=== PATIENT | male | born 1970 | race Two or more races ===

== ENCOUNTER 2016-11-22 15:56 | Emergency (ER) | payer OTHER ==
[2016-11-22] MEDS ORDERED: ONDANSETRON 4 MG/2 ML VIAL IVP ONE (16:08)
[2016-11-22] MEDS ORDERED: NS 1,000 ML IV ONE (16:08)
[2016-11-22 16:16] VITALS: RESP 16
--- NOTE | 2016-11-22 16:23 | CPEKG ---
Heart Rate: 92 RR Interval: 652 P-R Interval: 168 QRSD Interval: 74 QT Interval: 316 QTC Interval: 391 P [place]: 16 QRS [place]: -8 T Wave [place]: 14 EKG Severity - ABNORMAL ECG - EKG Impression: SINUS RHYTHM EKG Impression: ABNRM R PROG, CONSIDER ASMI OR LEAD PLACEMENT Electronically Signed By: Portillo Treviño 22-Nov-2016 19:31:14
[2016-11-22] MEDS ORDERED: HYOSCYAMINE SULFATE 0.125 MG TAB PO ONE (16:31)
[2016-11-22] MEDS ORDERED: NITROGLYCERIN 0.4 MG BTL SL ONE (16:38)
[2016-11-22 16:43] LABS: % IMMATURE GRANULYOCYTES 0.2 % (0.0-1.1); ABSOLUTE IMMATURE GRANULOCYTES 0.02 10^3/uL (0.00-0.10); ADD DIFF? NO; ADD MORPH? NO; ADD SCAN? NO; ATYPICAL LYMPHOCYTE FLAG 10 (0-99); FRAGMENT RBC FLAG 0 (0-99); LEFT SHIFT FLG 50 (0-99); LIPEMIA HEMOLYSIS FLAG 90 (0-99); MEAN CELL HEMOGLOBIN 31.3 pg (27.9-34.1); MEAN CELL HEMOGLOBIN CONCENTR. 34.8 g/dL (32.4-36.7); MEAN PLATELET VOLUME 11.4 fL (8.7-11.7); PLATELET CLUMPS FLAG 0 (0-99); PLATELET COUNT 178 10^3/uL (150-400); RED BLOOD CELL COUNT 5.11 10^6/uL (4.40-6.38); RED CELL DISTRIBUTION WIDTH 12.4 % (11.5-15.2)
[2016-11-22 16:45] VITALS: TEMP 97.9
[2016-11-22 16:57] LABS: ALANINE AMINOTRANSFERASE 53 IU/L (21-72); ALBUMIN 3.6 g/dL (3.5-5.0); ALKALINE PHOSPHATASE 70 IU/L (38-126); ANION GAP 11 mEq/L (8-16); ASPARTATE AMINOTRANSFERASE 23 IU/L (17-59); BILIRUBIN,TOTAL 0.5 mg/dL (0.1-1.4); CALCIUM 8.4 mg/dL (8.5-10.4); CARBON DIOXIDE 22 mEq/l (22-31); CHLORIDE 103 mEq/L (97-110); CREATININE 0.6 mg/dL (0.7-1.3); GLOMERULAR FILTRATION RATE > 60; GLUCOSE 140 mg/dL (70-100); POTASSIUM 3.6 mEq/L (3.5-5.2); SODIUM 136 mEq/L (134-144); TOTAL PROTEIN 6.6 g/dL (6.3-8.2)
[2016-11-22 17:09] LABS: TROPONIN I < 0.012 ng/mL (0-0.034)
[2016-11-22] MEDS ORDERED: ASPIRIN 81 MG CHEWABLE TAB PO ONE (17:11)
[2016-11-22 17:21] LABS: INR 1.08 (0.83-1.16); PROTIME(PATIENT) 13.7 SEC (12.0-15.0)
[2016-11-22 17:22] LABS: APTT 30.3 SEC (23.0-38.0)
[2016-11-22] MEDS ORDERED: IOPAMIDOL (ISOVUE 370) 100 ML BTL IV ONE (17:30)
[2016-11-22] MEDS ORDERED: MAG HYDROX/AL HYDROX/SIMETH 30 ML UDCUP PO ONE (19:10)
--- NOTE | 2016-11-22 19:12 | EDPHY ---
H & P Stated Complaint: fever, vomiting, diarrhea, SOB, CP since sunday Time Seen by Provider: 11/22/16 16:07 HPI/ROS: While this patient is chief complaint is chest pain, he also complains of vomiting, diarrhea and other somatic complaints. His symptoms started Sunday, 2 days prior to arrival with onset of watery diarrhea-10 episodes or so a day over the past 2 days. Vomiting started Sunday afternoon and has had a few episodes daily since then, unable to tolerate p. o. food or fluids over the past 24 hours. Today at 2:30 p.m. he had bright red blood-small amount mixed in his emesis that concerned him and prompted his arrival along with onset of chest pains that he describes as substernal radiating to his back since this morning. He states the pain has been constant since onset, moderate intensity worse with a deep breath. The symptoms also worsens but when he bends forward. He notes associated nausea also since this morning. He states the dyspnea is mild. ROS: Subjective fevers Sunday in yesterday, none today. No other constitutional symptoms Musculoskeletal: He did describes leg aches and back ache. The left leg is more painful than the right as moderate intensity the posterior calf. HEENT: No recent URI symptoms. He does complain of a generalized headache feels like a pressure of [id number] intensity improved at 4:00 a.m. with ibuprofen though he thinks that he vomited the ibuprofen up later. Pulmonary: As per HPI. He also reports a occasional dry cough today. Cardiovascular: No heart palpitations. Other symptoms as per HPI GI: He describes generalized crampy abdominal pain that started after the onset of vomiting and diarrhea it is moderate intensity. : No urinary symptoms or testicle pain. Integumentary: No skin rash or other complaints Complete review of symptoms is otherwise negative Source: Patient, Family Exam Limitations: No limitations, Language barrier (His daughter translate Citizen Of [place].) - Personal History Current Tetanus Diphtheria and Acellular Pertussis (TDAP): Unsure - Medical/Surgical History Hx Asthma: No Hx Chronic Respiratory Disease: No Hx Diabetes: Yes Hx Cardiac Disease: Yes Hx Renal Disease: No Hx Cirrhosis: No Hx Alcoholism: No Hx HIV/AIDS: No Hx Splenectomy or Spleen Trauma: No Other PMH: diabetes, Leah Cholesterol - Family History Significant Family History: Other (His mother had DVTs) - Social History Smoking Status: Current every day smoker Alcohol Use: Occasionally (Patient drinks once or twice a week but drank 7 beers on Sunday) Drug Use: None - Physical Exam Exam: General Appearance: Alert, no distress. Eyes: Pupils equal and round no pallor or injection. ENT, Mouth: Mucous membranes moist. Respiratory: There are no retractions, lungs are clear to auscultation. Cardiovascular: Regular rate and rhythm. Gastrointestinal: Mildly hyperactive bowel sounds, soft, diffuse mild tenderness with no guarding or rebound. No organomegaly. Back: Tenderness that seems muscular in the mid right back. No CVA tenderness. No midline spine tenderness. Neurological: GCS 15 with no focal deficits. Skin: Warm and dry, no rashes. Musculoskeletal: Neck is supple nontender. Extremities are symmetrical, full range of motion. The patient has moderate left calf tenderness without swelling. No significant right calf tenderness. Psychiatric: Mood and affect normal DIFFERENTIAL DIAGNOSIS: After history and physical exam differential diagnosis was considered for viral gastroenteritis, Penelope-Lombardo tear, GERD, esophageal spasm, mi, PE, dissecting aortic aneurysm, DVT, pneumonia, alcohol gastritis, hepatitis, cholecystitis Constitutional: Initial Vital Signs Temperature (C) 36.6 C 11/22/16 16:13 Heart Rate 97 11/22/16 16:13 Respiratory Rate 16 11/22/16 16:13 Blood Pressure 120/76 11/22/16 16:13 O2 Sat (%) 94 11/22/16 16:13 O2 Delivery Mode Room Air Allergies/Adverse Reactions: No Known Allergies Allergy (Unverified 11/22/16 16:15) Home Medications: Medication Instructions Recorded ASPIRIN 11/22/16 Chantix 11/22/16 GLIPIZIDE 11/22/16 Lisinopril 11/22/16 Metformin 1000 mg 11/22/16 Medical Decision Making - Diagnostics EKG Interpretation: 12 lead EKG performed at 4:21 p.m. indication chest pain rule out HI Sinus rhythm 92 Intervals: Normal throughout [place]: Normal throughout ST segments: Normal throughout Overall assessment sinus rhythm with poor anterior R-wave progression otherwise normal. No prior for comparison Imaging Results: Imaging Impressions Chest/Thorax CTA 11/22/16 17:11 Impression: 1. No evidence of pulmonary embolic disease. 2. The heart is borderline enlarged. 3. See above report for additional findings. Results called and discussed with Dr. Portillo Price on November 22, 2016 at 1808 hours. Extremity Venous Study 11/22/16 18:06 Impression: No evidence of deep vein thrombosis in the left lower extremity. Results called and discussed with PORTILLO PRICE M.D. on 11/22/2016 at 19:09 ED Course/Re-evaluation: IV Zofran with resolution of nausea vomiting 1 L normal saline bolus After review of elevated D-dimer and resolution of nausea patient treated with 324 of aspirin p.o. for potential DVT or PE and troponin pending Patient treated with Maalox. He had marked improvement in all of his symptoms with treatment. I reviewed his labs. Other than the elevated D-dimer no other significant lab abnormalities. I explained his CT chest-negative for PE, pneumonia or other abnormalities I also explained the negative Doppler ultrasound that ruled out DVT left lower extremity Discussion: This [id number] diabetic smoker with family history of DVT who presented with chest pain, leg pain and tenderness, vomiting and diarrhea had a broad differential diagnosis list of possibilities initially. After workup, I find no evidence of pulmonary embolism, pneumonia, pneumothorax or other significant pulmonary abnormalities. Similarly, no significant cardiac abnormalities are noted. He has a benign EKG and negative troponin and his symptoms in his chest resolved without significant intervention. I suspect that he had esophageal symptoms attributable to significant vomiting with soft diet is. I think that the small amount of bright red blood is consistent with Penelope-Lombardo tear in this patient with serial vomiting explain this to him. On repeat examination shortly prior to discharge the patient appears well, without any significant lingering symptoms. I think the at a viral gastroenteritis causing his vomiting and diarrhea. Patient will go home on Zofran and take [id number] Maalox, omeprazole and Imodium for symptoms. He will follow up with primary care physician for any ongoing symptoms he understands the need to return emergency department if he has any significant recurrence of his symptoms despite the treatment plan. Answered all the patient's questions and is comfortable with discharge home - Data Points Laboratory Results: Laboratory Results 11/22/16 16:35 11/22/16 16:35 11/22/16 11/22/16 11/22/16 16:35 16:35 16:35 WBC RBC Hgb Hct MCV MCH MCHC RDW Plt Count MPV Neut % (Auto) Lymph % (Auto) [place] % (Auto) Eos % (Auto) Baso % (Auto) Nucleat RBC Rel Count Absolute Neuts (auto) Absolute Lymphs (auto) Absolute Monos (auto) Absolute Eos (auto) Absolute Basos (auto) Absolute Nucleated RBC Immature Gran % Immature Gran # PT 13.7 SEC SEC (12.0-15.0) INR 1.08 (0.83-1.16) APTT 30.3 SEC SEC (23.0-38.0) D-Dimer 0.93 ug/mLFEU H ug/mLFEU (0.00-0.50) Sodium 136 mEq/L mEq/L (134-144) Potassium 3.6 mEq/L mEq/L (3.5-5.2) Chloride 103 mEq/L mEq/L (97-110) Carbon Dioxide 22 mEq/l mEq/l (22-31) Anion Gap 11 mEq/L mEq/L (8-16) BUN 15 mg/dL mg/dL (7-23) Creatinine 0.6 mg/dL L mg/dL (0.7-1.3) Estimated GFR > 60 Glucose 140 mg/dL H mg/dL (70-100) Calcium 8.4 mg/dL L mg/dL (8.5-10.4) Total Bilirubin 0.5 mg/dL mg/dL (0.1-1.4) AST 23 IU/L IU/L (17-59) ALT 53 IU/L IU/L (21-72) Alkaline Phosphatase 70 IU/L IU/L (38-126) Troponin I < 0.012 ng/mL ng/mL (0-0.034) Total Protein 6.6 g/dL g/dL (6.3-8.2) Albumin 3.6 g/dL g/dL (3.5-5.0) Lipase 54.0 IU/L IU/L (23-300) 11/22/16 16:35 WBC 8.42 10^3/uL 10^3/uL (3.80-9.50) RBC 5.11 10^6/uL 10^6/uL (4.40-6.38) Hgb 16.0 g/dL g/dL (13.7-17.5) Hct 46.0 % % (40.0-51.0) MCV 90.0 fL fL (81.5-99.8) MCH 31.3 pg pg (27.9-34.1) MCHC 34.8 g/dL g/dL (32.4-36.7) RDW 12.4 % % (11.5-15.2) Plt Count 178 10^3/uL 10^3/uL (150-400) MPV 11.4 fL fL (8.7-11.7) Neut % (Auto) 76.8 % H % (39.3-74.2) Lymph % (Auto) 11.4 % L % (15.0-45.0) [place] % (Auto) 9.7 % % (4.5-13.0) Eos % (Auto) 1.7 % % (0.6-7.6) Baso % (Auto) 0.2 % L % (0.3-1.7) Nucleat RBC Rel Count 0.0 % % (0.0-0.2) Absolute Neuts (auto) 6.46 10^3/uL 10^3/uL (1.70-6.50) Absolute Lymphs (auto) 0.96 10^3/uL L 10^3/uL (1.00-3.00) Absolute Monos (auto) 0.82 10^3/uL H 10^3/uL (0.30-0.80) Absolute Eos (auto) 0.14 10^3/uL 10^3/uL (0.03-0.40) Absolute Basos (auto) 0.02 10^3/uL 10^3/uL (0.02-0.10) Absolute Nucleated RBC 0.00 10^3/uL 10^3/uL (0-0.01) Immature Gran % 0.2 % % (0.0-1.1) Immature Gran # 0.02 10^3/uL 10^3/uL (0.00-0.10) PT INR APTT D-Dimer Sodium Potassium Chloride Carbon Dioxide Anion Gap BUN Creatinine Estimated GFR Glucose Calcium Total Bilirubin AST ALT Alkaline Phosphatase Troponin I Total Protein Albumin Lipase Medications Given: Discontinued Medications Al Hydroxide/Mg Hydroxide (Maalox Susp) 30 ml PO EDNOW ONE Stop: 11/22/16 19:11 Last Admin: 11/22/16 19:19 Dose: 30 ml Aspirin (Aspirin) 324 mg PO EDNOW ONE Stop: 11/22/16 17:12 Last Admin: 11/22/16 17:27 Dose: 324 mg Hyoscyamine Sulfate (Levsin, Hyomax-Sl) 0.125 mg PO EDNOW ONE Stop: 11/22/16 16:32 Last Admin: 11/22/16 16:40 Dose: 0.125 mg Sodium Chloride (Ns) 1,000 mls @ 0 mls/hr IV EDNOW ONE; Wide Open PRN Reason: Protocol Stop: 11/22/16 16:09 Last Admin: 11/22/16 16:40 Dose: 1,000 mls Ondansetron HCl (Zofran) 4 mg IVP EDNOW ONE Stop: 11/22/16 16:09 Last Admin: 11/22/16 16:41 Dose: 4 mg Departure - Departure Disposition: Home, Routine, Self-Care Clinical Impression: Gastroenteritis, Penelope-Lombardo tear, Dehydration Chest pain Qualifiers: Chest pain type: chest pain on breathing Qualified Code(s): R07.1 - Chest pain on breathing Condition: Good Instructions: Chest Pain (ED), Gastroenteritis (ED), Penelope-Lombardo Syndrome (ED ) Additional Instructions: Diagnosis: Chest pain 2. Gastroenteritis 3. Dehydration 4. 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 Your vomiting diarrhea are likely caused by a virus. Plan: Zofran for nausea or vomiting if needed Light diet to feel improved Imodium for diarrhea if needed Maalox for reflux her chest discomfort as needed. Follow-up with primary care physician for any ongoing symptoms last beyond the next few days. Avoid alcohol for next 7-10 days Prilosec-40 mg a day for the next 10 days Return for any significant worsening despite treatment plan. Referrals: MICHELLE SMITH,. [Primary Care Provider] - As per Instructions
[2016-11-22 19:29] VITALS: BP 127/74; PULSE 84; O2SAT 96
== END 2016-11-22 19:28 | disposition home or self-care (01) ==
LOC: CED 15:56
DX: K22.6 Gastro-esophageal laceration-hemorrhage syndrome (principal); K52.9 Noninfective gastroenteritis and colitis, unspecified; E11.9 Type 2 diabetes mellitus without complications; F17.200 Nicotine dependence, unspecified, uncomplicated; E86.9 Volume depletion, unspecified; Z79.82 Long term (current) use of aspirin; Z79.84 Long term (current) use of oral hypoglycemic drugs
CPT/HCPCS: 71275-PO; 80053-PO; 83690-PO; 84484-PO; 85025-PO; 85378-PO; 85610-PO; 85730-PO; 93971-PO; 96374; J2405; Q9967